=== PATIENT | male | born 1995 | race Caucasian/White ===

== ENCOUNTER 2017-07-25 09:21 | Emergency (ER) | payer OTHER ==
[2017-07-25 09:28] VITALS: BP 108/64
[2017-07-25] MEDS ORDERED: Ondansetron ODT TAB* 4 MG PO ONE (09:56)
[2017-07-25] MEDS ORDERED: Lidocaine 2% VISCOUS* 15 ML UDC PO ONE (10:27)
[2017-07-25] MEDS ORDERED: SCOP/HYOS/ATR/PB(NF) 10 ML UDC PO ONE (10:27)
[2017-07-25] MEDS ORDERED: Al Hydrox/Mg Hydrox/Simet LIQ* 30 ML UDC PO ONE (10:27)
--- NOTE | 2017-08-06 09:25 | UC ---
Katelin Hoover Jason, scribed for YakovOlinda LondonoDO on 07/25/17 at 0932 . FLU HPI - HPI Summary HPI Summary: This patient is a 22 year old M presenting to [facility] accompanied by girlfriend with a chief complaint of sore throat and vomiting since 1 day ago. The patient reports that yesterday morning he felt his throat swelling, and before midnight he drank fewer than 10 shots of alcohol and forced himself to vomit 4 times. He adds that now it feels like I have a 50 pound weight on my chest. The patient rates the pain 9/10 in severity. Symptoms aggravated by nothing. Symptoms alleviated by nothing. Patient reports nausea, mild headache, chills, inability to swallow, productive cough with streaks of red blood, and feels dehydrated. Patient denies fever, diarrhea, sinus congestion, and ear ache. Additionally, the last time he vomited was 1 hour ago and he cannot tell if the urge to vomit is due to alcohol intoxication or due to illness. - History of Current Complaint Chief Complaint: UCGeneralIllness Stated Complaint: SORE THROAT VOMITING COUGH Hx Obtained From: Patient Onset/Duration: Gradual Onset, Lasting Days - since 1 day ago, Still Present Pain Intensity: 9 Pain Scale Used: 0-10 Numeric Associated Signs & Symptoms: Positive: Negative - fever, diarrhea, sinus congestion, and ear ache, Cough - Productive with blood, Sore Throat, Nasal Congestion - sinus congestion, Headache - mild, Vomiting. Negative: Fever, Diarrhea - Allergy/Home Medications Allergies/Adverse Reactions: Allergies Allergy/AdvReac Type Severity Reaction Status Date / Time No Known Allergies Allergy Verified 07/25/17 09:25 PMH/Surg Hx/FS Hx/Imm Hx Previously Healthy: Yes Cardiovascular History: Hypertension - negative Respiratory History: Asthma - negative - Surgical History Surgical History: None - Family History Known Family History: Positive: Hypertension Negative: Blood Disorder - Social History Occupation: Student Lives: Dormitory/Roommates Alcohol Use: Rare Substance Use Type: None Smoking Status (MU): Never Smoked Tobacco Review of Systems Constitutional: Negative - negative fever, Chills, Other - feels dehydrated ENT: Negative - sinus congestion and ear ache, Sore Throat, Other - "inability to swallow" Respiratory: Cough - productive with red streaks of blood Gastrointestinal: Negative - diarrhea, Vomiting, Nausea Neurological: Headache - Mild All Other Systems Reviewed And Are Negative: Yes Physical Exam Triage Information Reviewed: Yes Vital Signs: Initial Vital Signs Temp 98.1 F 07/25/17 09:25 Pulse 72 07/25/17 09:25 Resp 18 07/25/17 09:25 BP 108/64 07/25/17 09:25 Pulse Ox 100 07/25/17 09:25 Vital Signs Reviewed: Yes Abdomen Description: Positive: Soft. Negative: CVA Tenderness (R), CVA Tenderness (L), Distended, Guarding, McBurney's Point Tenderness, Peritoneal Signs Bowel Sounds: Positive: Present - Additional Comments Appearance: Uncomfortable but Well-Appearing, No Pain Distress, Well-Nourished Eyes: conjunctiva clear, no discharge ENT: Hearing grossly normal, no muffled/hoarse voice. TMs normal, negative tonsillar swelling, negative tonsillar exudate, negative trismus. Neck: Normal, Supple Respiratory/Lung Sounds: No accessory muscle use. Mild respiratory distress. Diffuse wheezing in all vences, prolonged respiration in the bases. Cardiovascular: RRR, No murmur Abdomen (if she checks): Soft, no guarding, not distended. LUQ tender to palpation. Bowel Sounds (if she checks): Present Musculoskeletal: Normal Neurological: Alert, muscle tone normal Psychiatric: Normal, age appropriate behavior Skin: Normal, Warm, Dry, Normal color Re-Evaluation - Re-Evaluation First Eval Re-Evaluation Time: 10:23 Change: Improved - Patient reports that he is feeling less nauseous and more comfortable. Flu Course/Dx - Course Course Of Treatment: This patient is a 22 year old M presenting to [facility] accompanied by girlfriend with a chief complaint of sore throat and vomiting since 1 day ago. The patient reports that yesterday morning he felt his throat swelling, and before midnight he drank fewer than 10 shots of alcohol and forced himself to vomit 4 times. He adds that now it feels like I have a 50 pound weight on my chest. The patient rates the pain 9/10 in severity. Symptoms aggravated by nothing. Symptoms alleviated by nothing. Patient reports nausea, mild headache, chills, inability to swallow, productive cough with streaks of red blood, and feels dehydrated. Patient denies fever, diarrhea, sinus congestion, and ear ache. Additionally, the last time he vomited was 1 hour ago and he cannot tell if the urge to vomit is due to alcohol intoxication or due to illness. In the UC course the patient was given Zofran, Xylocaine 2%, equivalent liquid, and Maalox plus. Rapid Strep test results are negative. Patient will be discharged with prescription for Zofran Tab, Ranitidine and follow up from PCP. The patient is agreeable with this plan. Dx of Gastritis. - Differential Dx/Diagnosis Provider Diagnoses: Gastritis Discharge - Discharge Plan Condition: Stable Disposition: HOME Prescriptions: Ondansetron TAB* [Zofran Tab*] 4 mg PO Q6H PRN #10 tab PRN Reason: Nausea/Vomiting Ranitidine HCl [Ranitidine Maximum Streng] 150 mg PO BID #10 tab Patient Education Materials: Ranitidine (By mouth), Ondansetron (By mouth), Gastritis (ED) Referrals: No Primary Care Phys,NOPCP [Primary Care Provider] - Additional Instructions: TRY CHELSEY TEA FOR FOR YOUR NAUSEA AND VOMITING. IF CHELSEY DOES NOT ADEQUATELY CONTROL YOUR SYMPTOMS, YOU CAN TRY ZOFRAN. Bone broth would likely be very soothing for your gi tract. The documentation as recorded by the Katelin black Jason accurately reflects the service I personally performed and the decisions made by me, Olinda Nagy DO.
== END 2017-07-25 11:53 | disposition home or self-care (01) ==
LOC: UCEAST 09:21
DX: K29.70 Gastritis, unspecified, without bleeding (principal); J02.9 Acute pharyngitis, unspecified; R09.81 Nasal congestion; R05 Cough; R51 Headache
CPT/HCPCS: 87651; 99202; A9270-GY; G0463